=== PATIENT | male | born 1965 | race African-American/Black ===

== ENCOUNTER → 2018-12-16 | Day surgery (SDC) | payer OTHER ==
[2018-12-09 15:19] LABS: BASOPHILS % 0.3 % (0.0-1.0); EOSINOPHILS # (AUTO) 0.1 (0.0-0.4); EOSINOPHILS % 2.1 % (0.0-6.0); HEMATOCRIT 42.8 % (38.2-49.6); HEMOGLOBIN 13.6 g/dL (14.0-18.0); LYMPHOCYTES # (AUTO) 2.7 (1.0-3.2); LYMPHOCYTES % 40.3 % (18.0-39.1); MEAN CORPUSCULAR HEMOGLOBIN 22.3 pg (28-32); MEAN CORPUSCULAR HGB CONC 31.8 g/dL (31-35); MEAN CORPUSCULAR VOLUME 70.2 fL (81-99); MONOCYTES # (AUTO) 0.8 (0.2-0.8); MONOCYTES % 12.1 % (4.4-11.3); NEUTROPHILS % 44.8 % (38.7-80.0); PLATELET COUNT 274 x10e3/uL (140-360); RED CELL DISTRIBUTION WIDTH 17.9 % (11.7-14.4)
[2018-12-09 15:35] LABS: ANION GAP 13.3 mmol/L (8-16); BLOOD UREA NITROGEN 16 mg/dL (7-26); BUN/CREATININE RATIO 15 (6-25); CALCIUM 9.5 mg/dL (8.4-10.2); CARBON DIOXIDE 27 mmol/L (22-29); CHLORIDE 99 mmol/L (98-107); CREATININE, SERUM 1.08 mg/dL (0.72-1.25); EST GLOMERULAR FILTRATION RATE > 60 ML/MIN (60-); GLUCOSE 86 mg/dL (74-118); POTASSIUM 3.3 mmol/L (3.5-5.1); SODIUM 136 mmol/L (136-145)
--- NOTE | 2018-12-09 17:18 | Diagnostic Imaging Report ---
Exam: PA and lateral chest radiograph Clinical history: Preoperative clearance Findings: There is no evidence of pulmonary consolidation, pleural effusion, or pneumothorax. The cardiac size is within normal limits. Regional osseous structures are unremarkable. Impression: 1. No radiographic evidence of acute cardiorespiratory disease. Signed by: Dr. Maicol Díaz MD on 12/09/2018 5:15 PM
[~2018-12-16] MED LIST: CEFTRIAXONE SOD 1 GM/NS 50 ML 50 ML IV ONE; HYDROCHLOROTHIA25 MG PO; METOPROLOL SUCC25 MG PO; PROPOFOL IV EMULSION 10 MG/ML 20 ML VIAL ONE
--- OUTSIDE RECORDS SUMMARY | 2018-12-16 09:24 | XMS REPORT ---
Author Author [facility] Address Unknown Phone Unavailable Care Team Providers Care Electronic Service Technician Name Role Phone Freddy MALDONADO Unavailable Unavailable Problems This patient has no known problems. Allergies, Adverse Reactions, Alerts This patient has no known allergies or adverse reactions. Medications This patient has no known medications. Results Test Description Test Time Test Comments Text Results Atomic Results Result Comments CHEST 2 VIEWS 2018-12-09 17:15:00 [place] [address] Patient Name: MIQUEL QUEEN MR #: [id number] : 1965 Age/Sex: 53/M Req #: [id number] [facility] Physician: Ordered by: SONA MALDONADO MD Report #: [id number] Location: OR Room/Bed: Procedure: [id number] DX/CHEST 2 VIEWS Exam Date: 12/09/18 Exam Time: 1518 REPORT STATUS: Signed Exam: PA and lateral chest radiograph Clinical history: Preoperative clearance Findings: There is no evidence of pulmonary consolidation, pleural effusion, or pneumothorax. The cardiac size is within normal limits. Regional osseous structures are unremarkable. Impression: 1. No radiographic evidence of acute cardiorespiratory disease. Signed by: Dr. Maicol Díaz MD on 12/09/2018 5:15 PM Dictated By: SHANTA DÍAZ MD 14 Transcribed By: KAYODE on 12/09/181714 COPY TO: SONA MALDONADO MD
[2018-12-16 11:30] VITALS: BP 113/70
--- NOTE | 2018-12-17 10:00 | Diagnostic Imaging Report ---
Transrectal ultrasound of the prostate, ultrasound guidance. TECHNIQUE: Sonographic guidance was provided to Dr. Tao Castellon for the purposes of a transrectal prostate biopsy. HISTORY: Elevated PSA FINDINGS: The seminal vesicles are present and unremarkable. The gland size measures 3.8 x 4.5 x 4.9 cm. The volume is 44.5 cubic cm. The peripheral zone is homogeneous without focal nodules. The transition zone demonstrates several BPH nodules. IMPRESSION: As above. Signed by: Dr. Adeline Miller MD on 12/17/2018 9:56 AM
--- NOTE | 2018-12-17 15:48 | Operative Report ---
DATE OF PROCEDURE: 12/16/2018 SURGEON: Tao Castellon MD PREOPERATIVE DIAGNOSIS: Elevated PSA. POSTOPERATIVE DIAGNOSIS: Elevated PSA OPERATIVE PROCEDURE PERFORMED: Transrectal ultrasound biopsy of the prostate. ANESTHESIA: MAC. ESTIMATED BLOOD LOSS: Minimal. INDICATIONS: Mr. Omar Hodge is a gentleman with noted elevation of his PSA. He now presents for potential diagnosis of this problem. PROCEDURE IN DETAIL: The patient was brought into the operative room, placed in the left lateral decubitus position. After administration of MAC anesthesia, he was prepped and draped in usual sterile fashion. Digital rectal exam reveals moderate bilateral induration without any focal nodules. Transrectal ultrasonography of the prostate was performed, this revealed a largely homogeneous gland with occasional cyst in the transition zone and a hypoechoic lesion noted in the left peripheral zone. The gland measured 44 mL in total volume. A total of 12 separate biopsy specimens were obtained using the standard template, this was sent to pathology for microscopic analysis. There was mild bleeding noted at the conclusion of the procedure. The patient was returned to his supine position and anesthesia was reversed. He was transferred to bed and taken to the postanesthesia care unit in good condition. Of note, the needle counts were correct at the conclusion of the case. Tao Castellon MD HLW/MODL /[id number] MTDD
== END | disposition home or self-care (01) ==
LOC: OR 09:22
PROVIDERS: ATTEND Urology
DX: R97.20 Elevated prostate specific antigen [PSA] (principal); Z01.810 Encounter for preprocedural cardiovascular examination; Z01.812 Encounter for preprocedural laboratory examination; Z01.811 Encounter for preprocedural respiratory examination; N32.0 Bladder-neck obstruction; I10 Essential (primary) hypertension
CPT/HCPCS: 36415; 55700; 71046; 76872; 76998; 80048; 85025; 88305; 93005; J0696; J2704